=== PATIENT | male | born 1995 ===

== ENCOUNTER 2022-01-03 07:57 | Emergency (ER) | payer SELFPAY ==
[2022-01-03] MEDS ORDERED: Fluorescein Opthalmic Strip ONE (08:11)
[2022-01-03] MEDS ORDERED: Proparacaine 0.5% Opth 15 ML BOT ONE (08:11)
== END 2022-01-03 09:15 | disposition home or self-care (01) ==
LOC: ERS 07:57
DX: S05.01XA Injury of conjunctiva and corneal abrasion without foreign body, right eye, initial encounter (principal); W22.8XXA Striking against or struck by other objects, initial encounter
CPT/HCPCS: 99283